=== PATIENT | female | born 1995 | race Asian ===

== ENCOUNTER 2020-07-15 14:25 | Inpatient (IN) | payer OTHER ==
[~2020-07-15] VITALS: Ht 160 cm; Wt 68.0 kg
[2020-07-15 14:50] VITALS: BP 140/80
[2020-07-15] MEDS ORDERED: Morphine Sulfate 2mg/ml Inj(IV/IM USE ONLY) IVP ONE ×2 (15:00→17:30)
[2020-07-15] MEDS ORDERED: Ketorolac 30mg Inj IV ONE ×2 (15:00→16:45)
--- NOTE | 2020-07-15 15:19 | NUR ---
ED Nurse Note:pt. came from home with c/o lower back pain no recent injury and nausea, blood and urine sent to labs, given IV meds and fluids
[2020-07-15 15:34] LABS: HEMATOCRIT 40.8 % (37.0-47.0); MEAN CORPUSCULAR VOLUME 89 FL (80-99); PLATELET COUNT 282 K/UL (150-450); RED BLOOD COUNT 4.59 M/UL (4.20-5.40); RED CELL DISTRIBUTION WIDTH 12.4 % (11.6-14.8); WHITE BLOOD COUNT 10.6 K/UL (4.8-10.8)
[2020-07-15 15:35] LABS: APPEARANCE,URINE CLOUDY; BILIRUBIN, URINE NEGATIVE (NEGATIVE); COLOR,URINE PALE YELLOW; GLUCOSE, URINE (UA) NEGATIVE (NEGATIVE); KETONES,URINE 3+ (NEGATIVE); LEUKOCYTE ESTERASE ,URINE NEGATIVE (NEGATIVE); NITRITE,URINE NEGATIVE (NEGATIVE); PH,URINE 8 (4.5-8.0); PROTEIN,URINE NEGATIVE (NEGATIVE); UROBILINOGEN,URINE NORMAL MG/DL (0.0-1.0)
[2020-07-15 15:46] LABS: ANION GAP 9 mmol/L (5-15); BLOOD UREA NITROGEN 10 mg/dL (7-18); CALCIUM 9.1 MG/DL (8.5-10.1); CARBON DIOXIDE 27 MMOL/L (21-32); CHLORIDE 103 MMOL/L (98-107); CREATININE 0.7 MG/DL (0.55-1.30); POTASSIUM 3.6 MMOL/L (3.5-5.1); SODIUM 139 MMOL/L (136-145)
[2020-07-15 15:51] LABS: ALANINE AMINOTRANSFERASE 28 U/L (12-78); ALBUMIN 4.4 G/DL (3.4-5.0); ALBUMIN/GLOBULIN RATIO 1.1 (1.0-2.7); ALKALINE PHOSPHATASE 46 U/L (46-116); ASPARTATE AMINO TRANSFERASE 18 U/L (15-37); BILIRUBIN,TOTAL 0.4 MG/DL (0.2-1.0); CREATINE KINASE 64 U/L (26-308)
--- NOTE | 2020-07-15 16:33 | Diagnostic Imaging Report ---
EXAM: CT Abdomen and Pelvis Without Intravenous Contrast CLINICAL HISTORY: PAIN TECHNIQUE: Axial computed tomography images of the abdomen and pelvis without intravenous contrast. CTDI is 5.2 mGy and DLP is 301.7 mGy-cm. One or more of the following dose reduction techniques were used: automated exposure control, adjustment of the mA and/or kV according to patient size, use of iterative reconstruction technique. COMPARISON: None FINDINGS: Lung bases: Mild atelectasis in the left lower lung. ABDOMEN: Liver: Unremarkable. Gallbladder and bile ducts: Unremarkable. No calcified stones. No ductal dilation. Pancreas: Unremarkable. No ductal dilation. Spleen: Unremarkable. No splenomegaly. Adrenals: Unremarkable. No mass. Kidneys and ureters: No hydronephrosis or stone. Stomach and bowel: Stomach is distended with ingested material and fluid. This may be related to a recent meal. No mucosal thickening. PELVIS: Appendix: Normal appendix. Bladder: Unremarkable. No stones. Reproductive: Multiple large heterogeneous fat-containing lesions in the pelvis, concerning for dermoids. ABDOMEN and PELVIS: Intraperitoneal space: Trace fluid in the pelvis may be physiologic. No free air. Bones/joints: No acute fracture. No dislocation. Soft tissues: Unremarkable. Vasculature: Phleboliths in the pelvis. No abdominal aortic aneurysm. Lymph nodes: Unremarkable. No enlarged lymph nodes. IMPRESSION: Multiple large heterogeneous fat-containing lesions in the pelvis, concerning for dermoids.
--- NOTE | 2020-07-15 16:41 | Emergency Room Report ---
History of Present Illness General Chief Complaint: Back Pain-No Injury Source: Patient (Karmen Turpin) Present Illness HPI 24-year-old female with a history of ADHD currently taking Vyvanse here complaining of sudden onset of right flank pain rating a 10 out of 10. Reports that happened in the middle of her sleep last night. Denies any urinary symptoms but reports that she is currently on her period. Also complains of few bouts of nonbloody emesis and feeling feverish. Denies diarrhea, constipation, chest pain shortness of breath. Continues to something strong for pain. Denies . Denies fall and injury. Reports that all injuries were back. (Karmen Turpin) Allergies: Coded Allergies: No Known Allergies (Unverified , 07/15/20) COVID-19 Screening Contact w/high risk pt: No Experienced COVID-19 symptoms?: No COVID-19 Testing performed DIRECTOR OF PHARMACY: No (Karmen Turpin) Patient History Past Medical History: see triage record Past Surgical History: none Pertinent Family History: none Last Menstrual Period: now Now: No Immunizations: UTD Reviewed Nursing Documentation: PMH: Agreed; PSxH: Agreed (Karmen Turpin) Nursing Documentation-PMH Past Medical History: No History, Except For (Karmen Turpin) Review of Systems All Other Systems: negative except mentioned in HPI (Karmen Turpin) Physical Exam Vital Signs Date Time Temp Pulse Resp B/P (MAP) Pulse Ox O2 Delivery O2 Flow Rate FiO2 07/15/20 14:28 97.9 80 16 140/80 (100) 98 Room Air Sp02 EP Interpretation: reviewed, normal General Appearance: no apparent distress, alert, GCS 15, non-toxic Head: normocephalic, atraumatic Eyes: bilateral eye normal inspection, bilateral eye PERRL ENT: hearing grossly normal, normal pharynx, no angioedema, normal voice Neck: full range of motion, supple/symm/no masses Respiratory: chest non-tender, lungs clear, normal breath sounds, no rhonchi, no respiratory distress, no retraction, no accessory muscle use, speaking full sentences Cardiovascular #1: regular rate, rhythm, no edema, no murmur Gastrointestinal: non tender, soft, no mass, no peritonitis, no bruit Genitourinary: CVA tenderness (R) Musculoskeletal: back normal, no calf tenderness, pelvis stable Neurologic: alert, motor strength/tone normal, oriented x3, sensory intact, responsive, speech normal Psychiatric: judgement/insight normal, memory normal, mood/affect normal, no suicidal/homicidal ideation Skin: no rash Lymphatic: no adenopathy (Karmen Turpin) Sp02 EP Interpretation: reviewed, normal General Appearance: alert, GCS 15, moderate distress Head: atraumatic ENT: normal ENT inspection, hearing grossly normal, normal voice Neck: normal inspection, full range of motion, supple, no bony tend Respiratory: normal inspection, lungs clear, normal breath sounds, no respiratory distress, no retraction, no wheezing Cardiovascular #1: regular rate, rhythm, no edema Musculoskeletal: normal inspection, back normal, normal range of motion Neurologic: alert, motor strength/tone normal, fountain brush assembler III-XII nml as tested, oriented, oriented x3, responsive, speech normal, normal inspection Psychiatric: normal inspection, judgement/insight normal, mood/affect normal Skin: no rash (Baljit Kwong MD) Medical Decision Making PA Attestation All my diagnosis and treatment plans were reviewed ad discussed with my supervising physician Dr. Kwong (Karmen Turpin) Diagnostic Impression: Primary Impression: Dermoid Additional Impression: Intractable abdominal pain ER Course 24-year-old female with a history of ADHD currently taking Vyvanse here complaining of sudden onset of right flank pain rating a 10 out of 10. Reports that happened in the middle of her sleep last night. Denies any urinary symptoms but reports that she is currently on her period. Also complains of few bouts of nonbloody emesis and feeling feverish. Denies diarrhea, constipation, chest pain shortness of breath. Continues to something strong for pain. Denies . Denies fall and injury. Reports that all injuries were back. Ddx considered but are not limited to: UTI, renal stone, ovarian torsion, pyelonephritis, urinary incontinence, prolapsed bladder Vital signs: are WNL, pt. is afebrile H&PE are most consistent with: Dermoid, intractable abdominal pain ORDERS: UA, urine cx, CT abdomen pelvis without contrast, CBC, CMP, UA, PT and PTT, lipase, tox screen, pelvic ultrasound, Percocet, Zofran ED INTERVENTIONS: NS bolus, morphine, Toradol, Zofran Upon discharge of patient, patient significant other was at bedside insisting on patient being admitted order given 30-day supply of Percocet afternoon Tylenol and have not yet stop patient BALANCE WHEEL MOTION INSPECTOR. I provided him with 2 BALANCE WHEEL MOTION INSPECTOR did contact information however they said that they are not sure whether insurance will be accepted. Patient's significant other was checking on his phone the whole time was speaking to the patient and it appeared as he was taking notes or recording my voice. Patient also insistent on getting an BALANCE WHEEL MOTION INSPECTOR consult coming in seeing the patient today. Patient boyfriend was talking for her the whole time. Patient boyfriend insisted after 6 mg of morphine patient still in moderate pain reports more pain medication does not know how to take care of her at home and believes that Percocet is not enough. I educated him that we cannot write for more than limited number of Percocet is a controlled substance patient is to follow primary doctor and I am more than happy to give the family clinics for patient to follow-up with as well as BALANCE WHEEL MOTION INSPECTOR however patient boyfriend requested for patient to stay in the hospital. I endorsed this case to my supervising physician Dr. Kwong. ([facility]) ER Course Patient presents with low back pain. She reports is primarily on the right side. CT imaging ordered by physician tiler's assistant showed large dermoid cyst. Pelvic ultrasound was ordered. Patient had persistent pain despite medications. Patient initially stated that she did not want transvaginal pelvic ultrasound performed. Patient was discussed with Dr. Chu Gomez for DIRECTOR OF SPECIAL EVENTS consult. Dr. Rebolledo was contacted for inpatient management. Patient was advised to maintain n.p.o. status. Patient was subsequently more agreeable to a transvaginal ultrasound. Labs Test 07/15/20 15:00 White Blood Count 10.6 K/UL (4.8-10.8) Red Blood Count 4.59 M/UL (4.20-5.40) Hemoglobin 13.0 G/DL (12.0-16.0) Hematocrit 40.8 % (37.0-47.0) Mean Corpuscular Volume 89 FL (80-99) Mean Corpuscular Hemoglobin 28.4 PG (27.0-31.0) Mean Corpuscular Hemoglobin Concent 31.9 G/DL (32.0-36.0) Red Cell Distribution Width 12.4 % (11.6-14.8) Platelet Count 282 K/UL (150-450) Mean Platelet Volume 7.8 FL (6.5-10.1) Neutrophils (%) (Auto) % (45.0-75.0) Lymphocytes (%) (Auto) % (20.0-45.0) Monocytes (%) (Auto) % (1.0-10.0) Eosinophils (%) (Auto) % (0.0-3.0) Basophils (%) (Auto) % (0.0-2.0) Differential Total Cells Counted 100 Neutrophils % (Manual) 94 % (45-75) Lymphocytes % (Manual) 5 % (20-45) Monocytes % (Manual) 1 % (1-10) Eosinophils % (Manual) 0 % (0-3) Basophils % (Manual) 0 % (0-2) Band Neutrophils 0 % (0-8) Platelet Estimate Adequate Platelet Morphology Normal Red Blood Cell Morphology Normal Prothrombin Time 10.7 SEC (9.30-11.50) Prothromb Time International Ratio 1.0 (0.9-1.1) Activated Partial Thromboplast Time 27 SEC (23-33) Urine Color Pale yellow Urine Appearance Cloudy Urine pH 8 (4.5-8.0) Urine Specific Crane 1.010 (1.005-1.035) Urine Protein Negative (NEGATIVE) Urine Glucose (UA) Negative (NEGATIVE) Urine Ketones 3+ (NEGATIVE) Urine Blood 4+ (NEGATIVE) Urine Nitrite Negative (NEGATIVE) Urine Bilirubin Negative (NEGATIVE) Urine Urobilinogen Normal MG/DL (0.0-1.0) Urine Leukocyte Esterase Negative (NEGATIVE) Urine RBC 10-15 /HPF (0 - 2) Urine WBC 0-2 /HPF (0 - 2) Urine Squamous Epithelial Cells Few /LPF (NONE/OCC) Urine Amorphous Sediment Many /LPF (NONE) Urine Bacteria Few /HPF (NONE) Urine HCG, Qualitative Negative (NEGATIVE) Sodium Level 139 MMOL/L (136-145) Potassium Level 3.6 MMOL/L (3.5-5.1) Chloride Level 103 MMOL/L (98-107) Carbon Dioxide Level 27 MMOL/L (21-32) Anion Gap 9 mmol/L (5-15) Blood Urea Nitrogen 10 mg/dL (7-18) Creatinine 0.7 MG/DL (0.55-1.30) Estimat Glomerular Filtration Rate > 60 mL/min (>60) Glucose Level 133 MG/DL (74-106) Calcium Level 9.1 MG/DL (8.5-10.1) Total Bilirubin 0.4 MG/DL (0.2-1.0) Aspartate Amino Transf (AST/SGOT) 18 U/L (15-37) Alanine Aminotransferase (ALT/SGPT) 28 U/L (12-78) Alkaline Phosphatase 46 U/L (46-116) Total Creatine Kinase 64 U/L (26-308) Total Protein 8.4 G/DL (6.4-8.2) Albumin 4.4 G/DL (3.4-5.0) Globulin 4.0 g/dL Albumin/Globulin Ratio 1.1 (1.0-2.7) Lipase 112 U/L (73-393) Human Chorionic Gonadotropin, Quant 1 mIU/mL (1-6) Urine Opiates Screen Negative (NEGATIVE) Urine Barbiturates Screen Negative (NEGATIVE) Phencyclidine (PCP) Screen Negative (NEGATIVE) Urine Amphetamines Screen Negative (NEGATIVE) Urine Benzodiazepines Screen Negative (NEGATIVE) Urine Cocaine Screen Negative (NEGATIVE) Urine Marijuana (THC) Screen Positive (NEGATIVE) Serum Alcohol < 30 mg/dL (Baljit Kwong MD) CT/MRI/US Diagnostic Results CT/MRI/US Diagnostic Results #1: Imaging Test Ordered: CT abdomen pelvis without contrast Impression FINDINGS: Lung bases: Mild atelectasis in the left lower lung. ABDOMEN: Liver: Unremarkable. Gallbladder and bile ducts: Unremarkable. No calcified stones. No ductal dilation. Pancreas: Unremarkable. No ductal dilation. Spleen: Unremarkable. No splenomegaly. Adrenals: Unremarkable. No mass. Kidneys and ureters: No hydronephrosis or stone. Stomach and bowel: Stomach is distended with ingested material and fluid. This may be related to a recent meal. No mucosal thickening. PELVIS: Appendix: Normal appendix. Bladder: Unremarkable. No stones. Reproductive: Multiple large heterogeneous fat-containing lesions in the pelvis, concerning for dermoids. ABDOMEN and PELVIS: Intraperitoneal space: Trace fluid in the pelvis may be physiologic. No free air. Bones/joints: No acute fracture. No dislocation. Soft tissues: Unremarkable. Vasculature: Phleboliths in the pelvis. No abdominal aortic aneurysm. Lymph nodes: Unremarkable. No enlarged lymph nodes. IMPRESSION: Multiple large heterogeneous fat-containing lesions in the pelvis, concerning for dermoids. CT/MRI/US Diagnostic Results #2: Imaging Test Ordered: pelvic US Impression COMPARISON: CT abdomen and pelvis 07/15/2020. FINDINGS: Uterus/cervix: Given findings on comparison CT, large pelvic mass may be within the uterus but is probably more likely anterior and adjacent to the uterus. Uterine size difficult to evaluate, estimated at 12.5 x 9.4 x 10 cm, although this includes the large central pelvic multicystic mass. Normal endometrial stripe thickness. Right ovary: Ovaries not definitively identified according to pigment grinder notes. Left ovary: Large central pelvic 8.3 x 7 x 6.3 cm multicystic structure with complex contents including intracystic nodularity. Left adnexal 4.8 x 4.6 x 6.3 cm complex cystic structure with echogenic regions present. Additional left adnexal 10.1 x 4.2 cm complex cystic structure with echogenic regions present. Free fluid: No free fluid. Bladder: Unremarkable as visualized. Wall is normal thickness for degree of distention. Other findings: Patient has a negative urine test. IMPRESSION: 1. Patient has a negative urine test. 2. Ovaries not definitively identified according to pigment grinder notes. 3. Given findings on CT and ultrasound, patient most likely has multiple bilateral pelvic dermoids which are probably adjacent to the uterus. 4. Recommend gynecology consultation and MRI pelvis without and with IV contrast to further characterize these findings. 5. Uterine size difficult to evaluate, estimated at 12.5 x 9.4 x 10 cm, although this includes the large central pelvic multicystic mass. (Karmen Turpin) Last Vital Signs Date Time Temp Pulse Resp B/P (MAP) Pulse Ox O2 Delivery O2 Flow Rate FiO2 07/15/20 15:30 97.9 07/15/20 14:50 80 16 140/80 98 Room Air (Karmen Turpin) Status: unchanged (Baljit Kwong MD) Disposition: ADMITTED INPATIENT Condition: Stable Scripts Ondansetron (Zofran) 4 Mg Tablet 4 MG ORAL Q6H PRN for Nausea & Vomiting, #21 TAB Prov: Karmen Turpin 07/15/20 Oxycodone/Acetaminophen 5-325* (PERCOCET 5-325 MG TABLET*) 1 Each Tablet 1 TAB ORAL Q8H PRN for For Pain for 4 Days, #12 TAB 0 Refills Prov: Karmen Turpin 07/15/20 Referrals: NOT CHOSEN IPA/,REFERRING (PCP) Patient Instructions: Pelvic Mass Additional Instructions: Patient to follow-up with BALANCE WHEEL MOTION INSPECTOR, gave contact information to Dr. Genao, advised to follow-up with, if worsening symptom return to the emergency room Karmen Turpin Jul 15, 2020 16:41 Baljit Kwong MD Jul 15, 2020 23:19
[2020-07-15] MEDS ORDERED: Morphine Sulfate 4mg/ml Inj (IV USE ONLY) IVP ONE (19:00)
--- NOTE | 2020-07-15 19:01 | NUR ---
ED Nurse Note:U/S was done and pt. received 3 doses of Morphine for pain control
--- NOTE | 2020-07-15 19:03 | NUR ---
HAND-OFF: Report given to Vini.
--- NOTE | 2020-07-15 19:30 | NUR ---
ED Nurse Note: Recieved report from lizbeth finley to resume care, pt in bed conversing with spouse at bedside, pt here with c/o abd pain, previously medicated but states pain meds work only for short time, now rated at 6/10, pt ahs patent saline lock, SIDEHAND provider at bedside to discharge pt, pt and spouse state they are not ready to go yet, informed provider and , waiting for further instructions for disposition.
[2020-07-15 19:45] VITALS: BP 131/74
[2020-07-15] MEDS ORDERED: PERCOCET 5-3251 EACH ORAL (20:05)
[2020-07-15] MEDS ORDERED: ZOFRAN4 M1 ORAL (20:05)
--- NOTE | 2020-07-15 20:40 | NUR ---
ED Nurse Note: at bedside discussing plan of care with pt and spouse.
--- NOTE | 2020-07-15 21:00 | NUR ---
ED Nurse Note: Pt now to be admitted to hospital, pt remains in bed awake and alert, pt constantly complains that she has pain, pt cries out loudly, screaming at times "help me", informed pt that it takes just a few minutes to get meds, pt and are very anxious, demanding to go to surgery "now!", pt takes off cardiac monitoring and b/p cuff stating it hurts, IV site patent, pt being medicated as ordered for pain, sat and explained to pt about pain meds and how they work and what to expect, pt remains very anxxious, pt is on phone with family member whom is MD and demanding we follow hre orders, MD at bedside to attempt to explain to both parties about admission process and doctors, will continue to closely monitor pt and follow orders as recieved.
[2020-07-15 22:00] VITALS: BP 129/77
[2020-07-15] MEDS ORDERED: fentaNYL 100 mcg/2 mL IV ONE (22:15)
--- NOTE | 2020-07-15 23:00 | NUR ---
ED Nurse Note: Pt is currently having bedside ultrasound, pt is crying, U/S tech came to ask for more pain meds, pt refuses to have vaginal ultrasound until she recieves fentanyl, meds given and pt continues to complain, pt in room and will not leave stating he has to be here, Covid precautions explained and visiting, informed pt he can stay, no longer here and new MD wants pt in lobby, will intervene to surfice all parties and keep pt comfortable for exam and care, pt allowed, also explained that nn further narcotics can be given if she will not allow monitoring, pt continues to state pain at 7-8/10 in vaginal area, no changes noted.
[2020-07-15] MEDS ORDERED: Hydromorphone 0.5mg/0.5ml inj IVP PRN (23:15)
[2020-07-15] MEDS: D5NS 1,000 ML IV SCH (23:15)
--- NOTE | 2020-07-15 23:46 | Diagnostic Imaging Report ---
EXAM: US Pelvis Transabdominal and Transvaginal, Complete CLINICAL HISTORY: PAIN TECHNIQUE: Real-time complete transabdominal and transvaginal pelvic ultrasound with image documentation. Transvaginal imaging was used for better evaluation of the endometrium and adnexa. COMPARISON: Same-day CT abdomen and pelvis and pelvic ultrasound. FINDINGS: Uterus/cervix: Unremarkable uterus. Uterus 8 x 5.5 x 4.2 cm Endometrium 0.6 cm No myometrial mass. Right ovary: Heterogeneous right adnexal, left adnexal, and central pelvic masses similar in appearance and based on CT and recent ultrasound imaging represent multiple large pelvic likely ovarian dermoids. Ovaries not discretely identified, torsion cannot be definitively excluded. Left ovary: See above. Free fluid: No free fluid. Bladder: Unremarkable as visualized. Wall is normal thickness for degree of distention. IMPRESSION: 1. Unremarkable uterus. 2. Heterogeneous right adnexal, left adnexal, and central pelvic masses similar in appearance and based on CT and recent ultrasound imaging represent multiple large pelvic likely ovarian dermoids. 3. Ovaries not discretely identified due to large pelvic masses, torsion cannot be definitively excluded.
[2020-07-15] MEDS ORDERED: HYDROmorphone 1mg/ml Carpuject ONE (23:53)
[2020-07-16] VITALS (16 sets, daily range): BP systolic 101–149; BP diastolic 64–89
--- NOTE | 2020-07-16 01:15 | NUR ---
ED Nurse Note: Pt has room for hospital admission, pt continues to ask for more pain meds, pt rates pain at 8/10, medicated as ordered, also given antiemetic for mild nausea, pt denies chest pain, no sob or labored breathing noted, 02 sat=98% on room air, saline lock intact and patent, pt belonging list completed and signed, report called to floor nurse JACQUE Coreas on unit, pt being taken up via gurney with RN and ER-Tech.
[2020-07-16] MEDS: HYDROmorphone 1mg/ml Carpuject IVP PRN ×3 (01:19→09:48)
--- NOTE | 2020-07-16 01:30 | NUR ---
NURSE NOTES: received report from JACQUE Hill from the ER. awaiting pts arrival on the unit.
--- NOTE | 2020-07-16 02:12 | NUR ---
NURSE NOTES: pt arrived on the unit via gurney. pt alert and oriented x 4, no acute distress noted and no co pain at the moment. pt oriented to the room, belongings reconciled. bed in lowest position, side rails up. pt vital signs are stable. call light placed within reach. will call Doctor for admission orders.
--- NOTE | 2020-07-16 04:00 | NUR ---
NURSE NOTES: pt vital signs are stable at this time. pt was able to ambulate to the bathroom and void with minimal assistance, steady gait. she is complaining of pain 3-4/10 at this time. will give dilaudid when due. pt is now lying in bed trying to sleep.
--- NOTE | 2020-07-16 05:00 | NUR ---
NURSE NOTES: pt agitated due to pain. pt asking if her surgery by Dr. Gomez will be today at 7am. pt told me she has yet to be seen by Dr. Gomez, no informed consent obtained at this moment. called nurse drying supervisor to inquire about surgery schedule, pt not on that list. informed pt that in the ED provider note, Dr. Gomez will most likely see her this morning but I cannot guarantee or pinpoint as to what time that will be. Will endorse pts concerns to day shift nurse. Will focus on pain management.
--- NOTE | 2020-07-16 05:30 | NUR ---
NURSE NOTES: pt agitation decreased after being given the 1mg Dilaudid, she is no longer moaning and is now asleep. no more co pain currently. no acute distress noted at this time.
--- NOTE | 2020-07-16 06:55 | NUR ---
NURSE HAND-OFF: Important Events on Shift:pain management Patient Status: stable Diet: NPO Pending Orders: remaining admission orders Pending Results/Labs:NA Pending MD notification: Dr. Gomez regarding surgery Latest Vital Signs: Temperature 97.9 , Pulse 72 , B/P 145 /85 , Respiratory Rate 17 , O2 SAT 96 , Room Air, O2 Flow Rate . Vital Sign Comment: stable Latest Caballero Fall Score: 30 Fall Risk: Medium Risk Safety Measures: Call light Within Reach, Bed Alarm , Side Rails Side Rails x2, Bed position Low and Locked. Fall Precautions: Patient Fall Education Report given to JACQUE Vazquez.
--- NOTE | 2020-07-16 07:45 | NUR ---
NURSE NOTES: Received report from JACQUE Coreas. Pt alert and oriented x 4, breathing even and unlabored in room air, no acute distress noted and no c/o pain at this time. bed in lowest position, call light placed within reach. will continue to monitor.
--- NOTE | 2020-07-16 08:19 | History & Physical ---
History and Physical History & Physicial seen and examined. Full Dictation completed on 815 hours. Batsheva Rebolledo MD Jul 16, 2020 08:19
--- NOTE | 2020-07-16 08:21 | General Progress Note ---
Subjective Allergies: Coded Allergies: No Known Allergies (Unverified , 07/15/20) Objective Last 24 Hour Vital Signs Date Time Temp Pulse Resp B/P (MAP) Pulse Ox O2 Delivery O2 Flow Rate FiO2 07/16/20 03:45 97.9 72 17 145/85 (105) 96 07/16/20 02:10 Room Air 07/16/20 01:50 97.9 69 16 149/83 (105) 96 07/16/20 01:30 97.9 07/16/20 01:30 97.9 76 16 129/77 97 Room Air 07/16/20 00:00 98.7 71 16 119/73 99 Room Air 07/15/20 23:15 97.9 07/15/20 22:00 97.9 76 16 129/77 97 Room Air 07/15/20 19:45 98.4 83 20 131/74 98 Room Air 07/15/20 19:31 97.9 07/15/20 18:02 97.9 07/15/20 17:13 97.9 07/15/20 15:30 97.9 07/15/20 15:30 97.9 07/15/20 14:50 97.9 80 16 140/80 98 Room Air 07/15/20 14:28 97.9 80 16 140/80 (100) 98 Room Air Laboratory Tests 07/15/20 15:00: White Blood Count 10.6, Red Blood Count 4.59, Hemoglobin 13.0, Hematocrit 40.8, Mean Corpuscular Volume 89, Mean Corpuscular Hemoglobin 28.4, Mean Corpuscular Hemoglobin Concent 31.9L, Red Cell Distribution Width 12.4, Platelet Count 282, Mean Platelet Volume 7.8, Neutrophils (%) (Auto) , Lymphocytes (%) (Auto) , Monocytes (%) (Auto) , Eosinophils (%) (Auto) , Basophils (%) (Auto) , Differential Total Cells Counted 100, Neutrophils % (Manual) 94H, Lymphocytes % (Manual) 5L, Monocytes % (Manual) 1, Eosinophils % (Manual) 0, Basophils % (Manual) 0, Band Neutrophils 0, Platelet Estimate Adequate, Platelet Morphology Normal, Red Blood Cell Morphology Normal, Prothrombin Time 10.7, Prothromb Time International Ratio 1.0, Activated Partial Thromboplast Time 27, Urine Color Pale yellow, Urine Appearance Cloudy, Urine pH 8, Urine Specific [place] 1.010, Urine Protein Negative, Urine Glucose (UA) Negative, Urine Ketones 3+H, Urine Blood 4+H, Urine Nitrite Negative, Urine Bilirubin Negative, Urine Urobilinogen Normal, Urine Leukocyte Esterase Negative, Urine RBC 10-15H, Urine WBC 0-2, Urine Squamous Epithelial Cells Few, Urine Amorphous Sediment ManyH, Urine Bacteria Few, Urine HCG, Qualitative Negative, Sodium Level 139, Potassium Level 3.6, Chloride Level 103, Carbon Dioxide Level 27, Anion Gap 9, Blood Urea Nitrogen 10, Creatinine 0.7, Estimat Glomerular Filtration Rate > 60, Glucose Level 133H, Calcium Level 9.1, Total Bilirubin 0.4, Aspartate Amino Transf (AST/SGOT) 18, Alanine Aminotransferase (ALT/SGPT) 28, Alkaline Phosphatase 46, Total Creatine Kinase 64, Total Protein 8.4H, Albumin 4.4, Globulin 4.0, Albumin/Globulin Ratio 1.1, Lipase 112, Human Chorionic Gonadotropin, Quant 1, Urine Opiates Screen Negative, Urine Barbiturates Screen Negative, Phencyclidine (PCP) Screen Negative, Urine Amphetamines Screen Negative, Urine Benzodiazepines Screen Negative, Urine Cocaine Screen Negative, Urine Marijuana (THC) Screen PositiveH, Serum Alcohol < 30 Height (Feet): 5 Height (Inches): 4.00 Weight (Pounds): 150 Assessment/Plan Assessment/Plan: Full dictation in progress: A/P: 1- Adnexal mass, Torsion of ovary including in ddx Plan: Mushroom Packer, ID and Nephrology consulted Batsheva Rebolledo MD Jul 16, 2020 08:21
[2020-07-16] MEDS: Enoxaparin 40mg Inj SUBQ SCH ×2 (09:00→09:45)
[2020-07-16] MEDS: Docusate 100mg cap ORAL SCH ×2 (09:12→09:45)
[2020-07-16] MEDS: D5NS 1,000 ML IV SCH (09:15)
--- NOTE | 2020-07-16 10:30 | NUR ---
NURSE NOTES: Pt was seen by Dr. Gomez and explained about procedure, pt signed consent for surgery.
--- NOTE | 2020-07-16 11:06 | Pre-Procedure Note/Attestation ---
Pre-Procedure Note/Attestation Complete Prior to Procedure Planned Procedure: bilateral Procedure Narrative: Diagnostic laparoscopy, possible exploratory laparotomy, possible salpingo-oophorectomy, possible cystectomy (Side to be determined laparoscopically) Indications for Procedure Pre-Operative Diagnosis: Severe Right Lower Abdominal Pain, acute onset Attestation I attest that I discussed the nature of the procedure; its benefits; risks and complications; and alternatives (and the risks and benefits of such alt ernatives), prior to the procedure, with the patient (or the patient's legal community health representative). I attest that, if there was a reasonable possibility of needing a blood transfusion, the patient (or the patient's legal community health representative) was given the [place] Department of Health Services standardized written summary, pursuant to the Martín Suraj Blood Safety Act ([place] Health and Safety Code # 1645, as amended). I attest that I re-evaluated the patient just prior to the surgery and that there has been no change in the patient's H&P, except as documented below: Chu Gomez MD Jul 16, 2020 11:06
[2020-07-16] MEDS ORDERED: Midazolam 2mg/2ml Inj ONE (11:35)
[2020-07-16] MEDS ORDERED: fentaNYL 100 mcg/2 mL IV ONE (11:36)
[2020-07-16] MEDS ORDERED: TransDerm Scop 1.5mg/72HR Patch TDERMAL ONE (11:38)
[2020-07-16] MEDS ORDERED: Succinylcholine 20mg/ml 10ml vial ONE (11:38)
[2020-07-16] MEDS ORDERED: Rocuronium Bromide 50mg/5ml Inj IV ONE (11:38)
[2020-07-16] MEDS ORDERED: cefOXitin 1gm Inj ONE (11:38)
[2020-07-16] MEDS ORDERED: Ropivacaine 5mg/ml Vial 30ml INJ ONE (11:39)
[2020-07-16] MEDS ORDERED: ProvayBlue 5mg/ml 10ml amp INJ ONE (11:45)
--- NOTE | 2020-07-16 11:55 | NUR ---
NURSE NOTES: Swabbed through left nare for Covid 19 test
[2020-07-16] MEDS ORDERED: NS Irrig 1000ml ONE (12:00)
[2020-07-16] MEDS ORDERED: Neostigmine 1mg/ml 10ml Inj ONE (12:00)
[2020-07-16] MEDS ORDERED: Glycopyrrolate 0.2mg/ml 1ml Vial ONE (12:00)
[2020-07-16] MEDS ORDERED: LR 1000ml ONE ×2 (12:00)
[2020-07-16] MEDS ORDERED: Sterile Water Irrig 1000ml IRRIG ONE (12:00)
[2020-07-16] MEDS ORDERED: Ketorolac 30mg Inj ONE (12:00)
--- NOTE | 2020-07-16 12:23 | NUR ---
NURSE NOTES: Pt was sent to surgery via hospital bed with stable condition.
[2020-07-16] MEDS ORDERED: NS Irrig 1000ml IRRIG ONE (13:10)
[2020-07-16] MEDS ORDERED: Duramorph PF 5mg/10ml amp ONE (13:19)
--- NOTE | 2020-07-16 13:23 | Anethesia Preoperative Eval ---
Anesthesia Pre-op PMH/ROS General Date of Evaluation: Jul 16, 2020 Time of Evaluation: 11:50 Anesthesiologist: Lucina ASA Score: ASA 2 Mallampati Score Class I : Soft palate, uvula, fauces, pillars visible Class II: Soft palate, uvula, fauces visible Class III: Soft palate, base of uvula visible Class IV: Only hard plate visible Mallampati Classification: Class II Surgeon: Patricia Diagnosis: Ovarian cysts Surgical Procedure: Laparoscopy Anesthesia History: none Family History: no anesthesia problems Allergies: Coded Allergies: No Known Allergies (Unverified , 07/15/20) Medications: see eMAR Patient NPO?: Yes Past Medical History Cardiovascular: Denies: HTN, CAD, [place], valve dz, arrhythmia, other Pulmonary: Denies: asthma, COPD, ALEK, other Gastrointestinal/Genitourinary: Reports: GERD - mild Neurologic/Psychiatric: Reports: depression/anxiety, other - recurrent abdominal pain; Denies: dementia, CVA, TIA Endocrine: Denies: DM, hypothyroidism, steroids, other HEENT: Denies: cataract (L), cataract (R), glaucoma, BENTON (L), BENTON (R), other Hematology/Immune: Reports: anemia - mild; Denies: DVT, bleeding disorder, other Musculoskeletal/Integumentary: Denies: OA, RA, DJD, DDD, edema, other PMH Narrative: as above admitted for acute recurrent abdominal pain PSxH Narrative: T&A, dental Sx Anesthesia Pre-op Phys. Exam Physician Exam Last Vital Signs Date Time Temp Pulse Resp B/P (MAP) Pulse Ox O2 Delivery O2 Flow Rate FiO2 07/16/20 12:00 98.2 70 17 129/87 (101) 97 07/16/20 09:00 Room Air Constitutional: NAD Neurologic: CN 2-12 intact Cardiovascular: RRR, no M/R/G Gastrointestinal: other - some tenderness on palpation Airway Exam Mallampati Score: Class II Neck: flexible ROM: full Teeth: intact Dentures: no upper, no lower Anesthesia Pre-op A/P Labs Hematology Test 07/15/20 15:00 White Blood Count 10.6 K/UL (4.8-10.8) Red Blood Count 4.59 M/UL (4.20-5.40) Hemoglobin 13.0 G/DL (12.0-16.0) Hematocrit 40.8 % (37.0-47.0) Mean Corpuscular Volume 89 FL (80-99) Mean Corpuscular Hemoglobin 28.4 PG (27.0-31.0) Mean Corpuscular Hemoglobin Concent 31.9 G/DL (32.0-36.0) L Red Cell Distribution Width 12.4 % (11.6-14.8) Platelet Count 282 K/UL (150-450) Mean Platelet Volume 7.8 FL (6.5-10.1) Neutrophils (%) (Auto) % (45.0-75.0) Lymphocytes (%) (Auto) % (20.0-45.0) Monocytes (%) (Auto) % (1.0-10.0) Eosinophils (%) (Auto) % (0.0-3.0) Basophils (%) (Auto) % (0.0-2.0) Differential Total Cells Counted 100 Neutrophils % (Manual) 94 % (45-75) H Lymphocytes % (Manual) 5 % (20-45) L Monocytes % (Manual) 1 % (1-10) Eosinophils % (Manual) 0 % (0-3) Basophils % (Manual) 0 % (0-2) Band Neutrophils 0 % (0-8) Platelet Estimate Adequate Platelet Morphology Normal Red Blood Cell Morphology Normal Coagulation Test 07/15/20 15:00 Prothrombin Time 10.7 SEC (9.30-11.50) Prothromb Time International Ratio 1.0 (0.9-1.1) Activated Partial Thromboplast Time 27 SEC (23-33) Chemistry Test 07/15/20 15:00 Sodium Level 139 MMOL/L (136-145) Potassium Level 3.6 MMOL/L (3.5-5.1) Chloride Level 103 MMOL/L (98-107) Carbon Dioxide Level 27 MMOL/L (21-32) Anion Gap 9 mmol/L (5-15) Blood Urea Nitrogen 10 mg/dL (7-18) Creatinine 0.7 MG/DL (0.55-1.30) Estimat Glomerular Filtration Rate > 60 mL/min (>60) Glucose Level 133 MG/DL (74-106) H Calcium Level 9.1 MG/DL (8.5-10.1) Total Bilirubin 0.4 MG/DL (0.2-1.0) Aspartate Amino Transf (AST/SGOT) 18 U/L (15-37) Alanine Aminotransferase (ALT/SGPT) 28 U/L (12-78) Alkaline Phosphatase 46 U/L (46-116) Total Creatine Kinase 64 U/L (26-308) Total Protein 8.4 G/DL (6.4-8.2) H Albumin 4.4 G/DL (3.4-5.0) Globulin 4.0 g/dL Albumin/Globulin Ratio 1.1 (1.0-2.7) Lipase 112 U/L (73-393) Human Chorionic Gonadotropin, Quant 1 mIU/mL (1-6) Urine Test Test 07/15/20 15:00 Urine HCG, Qualitative Negative (NEGATIVE) Risk Assessment & Plan Assessment: ASA 2 Plan: GA with ETT PONV prevention Status Change Before Surgery: No Pre-Antibiotics Drug: Cefoxitin 1gr. Given Within 1 Hr of Incision: Yes Time Given: 12:45 Mickey Verdugo MD Jul 16, 2020 13:22
[2020-07-16] MEDS ORDERED: Morphine Sulfate 10mg/ml Inj ONE (13:24)
[2020-07-16] MEDS ORDERED: TransDerm Scop 1.5mg/72HR Patch TDERMAL SCH (13:30)
[2020-07-16] MEDS ORDERED: LR 1000ml 1,000 ML IVLG SCH (13:45)
[2020-07-16] MEDS ORDERED: DiphenhydrAMINE 50mg/ml Inj IVP PRN (13:45)
[2020-07-16] MEDS ORDERED: Meperidine 25mg/1ml Inj (FOR RIGORS ONLY) IV PRN (13:45)
[2020-07-16] MEDS ORDERED: Midazolam 2mg/2ml Inj IVP PRN (13:45)
[2020-07-16] MEDS ORDERED: Ketorolac 30mg Inj IV PRN (13:45)
[2020-07-16] MEDS ORDERED: Metoclopramide 10mg/2ml Inj IVP PRN (13:45)
[2020-07-16] MEDS ORDERED: Acetaminophen (Non formulary) 100 ML IV SCH (14:00)
--- NOTE | 2020-07-16 15:58 | Immediate Post-Op Evaluation ---
Immediate Post-Op Evalulation Immediate Post-Op Evalulation Procedure: Laparoscopic removal of R ovarian cyst Date of Evaluation: Jul 16, 2020 Time of Evaluation: 15:57 IV Fluids: 1200 Blood Products: none Estimated Blood Loss: 150 Urinary Output: 300 Blood Pressure Systolic: 122 Blood Pressure Diastolic: 56 Pulse Rate: 78 Respiratory Rate: 20 O2 Sat by Pulse Oximetry: 99 Temperature (Fahrenheit): 97.6 Pain Score (1-10): 1 Nausea: No Vomiting: No Complications none Patient Status: reacts, patent, extubated, none Hydration Status: adequate Mickey Verdugo MD Jul 16, 2020 15:58
--- NOTE | 2020-07-16 16:01 | Brief Operative Note ---
Immediate Post Operative Note Operative Note Pre-op Diagnosis: Severe Right Lower Abdominal Pain, acute onset Procedure: Video laparoscopy, Right Salpingo-oophorectomy, evacuation of extensive dermoid cyst contents Post-op Diagnosis: 15 cm right ovarian mass, Right dermoid cyst, Right ovarian torsion Surgeon: Chu Gomez MD Restaurant Bartender: -- Anesthesiologist: Devin Verdugo MD Anesthesia: general Specimen: yes - Right tube and ovary Complications: none Condition: stable Fluids: LR @125 cc / hr Estimated Blood Loss: minimal Drains: none Implant(s) used?: No Chu Gomez MD Jul 16, 2020 16:01
[2020-07-16] MEDS: Ketorolac 30mg Inj IM SCH ×2 (16:15→22:20)
[2020-07-16] MEDS ORDERED: HYDROmorphone 1mg/ml Carpuject SUBQ PRN (16:15)
[2020-07-16] MEDS ORDERED: HYDROcodone/Acetamin 5/325 tab ORAL PRN (16:15)
[2020-07-16] MEDS ORDERED: Tylenol #3 tab (300mg/30mg) ORAL PRN (16:15)
[2020-07-16] MEDS: D5 1/2NS 1,000 ML IV SCH (16:15)
--- NOTE | 2020-07-16 16:50 | NUR ---
NURSE NOTES: Pt came back from recovery after surgery via hospital bed. Received report from JACQUE Hensley. Pt awake but drowsy, alert and oriented, breathing even and unlabored, on NC 2L. Vital signs stable. Noted with surgical dressing x3, clean and dry. Provided ice chips. Call light within reach. will continue to monitor.
--- NOTE | 2020-07-16 19:30 | NUR ---
NURSE NOTES: received pt and report from JACQUE Vazquez. pt alert and oriented x 4, iv site clean dry and intact and running fluids as ordered, lap surgical site dressing clean dry and intact. no acute s/s of distress, mild pain at this time at lap sites. she has still not voided since removal of salinas. will monitor this throughout the shift.
--- NOTE | 2020-07-16 19:31 | NUR ---
NURSE HAND-OFF: Important Events on Shift:[Post-op, vitals stable, pain management, not voided yet after salinas out] Patient Status: [stable] Diet: [reg] Pending Orders: [] Pending Results/Labs:[] Pending MD notification:[] Latest Vital Signs: Temperature 98.7 , Pulse 85 , B/P 121 /80 , Respiratory Rate 18 , O2 SAT 99 , Nasal Cannula, O2 Flow Rate 3 . Vital Sign Comment: [stable] Latest Caballero Fall Score: 30 Fall Risk: Medium Risk Safety Measures: Call light Within Reach, Bed Alarm Zone 1, Side Rails Side Rails x2, Bed position Low and Locked. Fall Precautions: Patient Fall Education Report given to [JACQUE Coreas].
[2020-07-16] MEDS ORDERED: LR 1000ml 1,000 ML IVLG ONE (21:45)
--- NOTE | 2020-07-16 21:45 | NUR ---
NURSE NOTES: received call from Dr. Gomez. Dr. Gomez made aware of salinas d/c at 1530 and that the pt had not voided yet. LR bolus ordered. I encouraged the pt to drink more fluids, offered water, apple juice and cranberry juice. pt taking in fluids well with only mild nausea.
--- NOTE | 2020-07-16 22:47 | NUR ---
NURSE NOTES: pt voided 400cc urine. no complications, no difficulty. pt tolerating pain with scheduled Toradol. Pt walked around the unit 1 revolution with assist. pt tolerated ambulation well. no acute distress observed.
--- NOTE | 2020-07-16 23:37 | NUR ---
NURSE NOTES: vital signs are stable. no acute distress observed. pain is controlled, pt lying in bed with no co pain at the moment.
[2020-07-17] MEDS: D5 1/2NS 1,000 ML IV SCH (01:40)
--- NOTE | 2020-07-17 01:54 | NUR ---
NURSE NOTES: pt has now voided 3 times since removal of the salinas. pt able to ambulate to bathroom independently, gait steady. pt stating that she is still unsure whether she should go home today. Will follow up and endorse pts concern to day shift nurse.
[2020-07-17] MEDS: Ketorolac 30mg Inj IM SCH (03:56)
[2020-07-17 04:00] VITALS: BP 103/61
--- NOTE | 2020-07-17 04:00 | NUR ---
NURSE NOTES: pt vital signs are stable at this time. pain is at 5/10. will give pain medication. pt got up again to ambulate to the bathroom and voided. assist needed getting out of bed but gait is steady when ambulating. no acute distress noted. alert and oriented x4.
[2020-07-17] MEDS ORDERED: Ketorolac 30mg Inj IM PRN (07:15)
--- NOTE | 2020-07-17 07:30 | NUR ---
NURSE NOTES: Patient is in bed asleep. Stable. Breathing is even and unlabored on room air. No signs of distress noted at this time. All safety measures provided. Patient is in bed in locked and lowest position with call light within reach. Will continue to monitor.
--- NOTE | 2020-07-17 07:35 | NUR ---
NURSE HAND-OFF: Important Events on Shift: pain management, possible d/c Patient Status: stable Diet: regular Pending Orders: NA Pending Results/Labs:NA Pending MD notification:NA Latest Vital Signs: Temperature 99.4 , Pulse 85 , B/P 103 /61 , Respiratory Rate 17 , O2 SAT 97 , Nasal Cannula, O2 Flow Rate 3 . Vital Sign Comment: stable through the shift Latest Caballero Fall Score: 30 Fall Risk: Medium Risk Safety Measures: Call light Within Reach, Bed Alarm Zone 1, Side Rails Side Rails x2, Bed position Low and Locked. Fall Precautions: Patient Fall Education Report given to JACQUE Almanza.
[2020-07-17 08:00] VITALS: BP 110/66
--- NOTE | 2020-07-17 08:59 | NUR ---
NURSE NOTES: Surgeon at bedside.
[2020-07-17] MEDS ORDERED: Ketorolac 60mg Inj IM SCH (09:30)
--- NOTE | 2020-07-17 09:38 | NUR ---
CASE MANAGEMENT:REVIEW 24YR OLD FEMALE PRESENTED TO ER CC: SUDDEN ONSET OF RT FLANK PAIN SI: DERMOID CYST. INTRACTABLE ABDOMINAL PAIN 97.8 80 16 140/80 98% ON RA GLUCOSE+133 URINE(+) THC IS: 1L NS BOLUS IV TORADOL X2 IV MORPHINE X3 IV ZOFRAN X2 HCG QUANTITATIVE PELVIC US CT ABD/PELVIS : TO MED/SURG 3EAST DCP FROM HOME PLAN: SURGERY
--- NOTE | 2020-07-17 09:47 | NUR ---
CASE MANAGEMENT:REVIEW 07/17/20 SI: POD #1 S/P RT SALPINGO OOPHORECTOMY, EVACUATION OF EXTENSIVE DERMOID CYST 99.1 103 17 110/66 96% ON RA IS: IM TORADOL X1 IVF@100/HR PROTONIX PO QD LOVENOX SQ QD NORCO PO Q4HRS PRN : MED/SURG STATUS 3 EAST DCP: FROM HOME PLAN: DISCHARGE
--- NOTE | 2020-07-17 09:57 | NUR ---
NURSE NOTES: Surgeon discussed plan of care with patient, all questions and concerns addressed. Patient able to void. Patient is sitting up at edge of bed. Pain is 2/10 when not moving. Will continue plan of care.
--- NOTE | 2020-07-17 12:00 | NUR ---
NURSE NOTES: Patient able to ambulate independently, tolerating diet, pain is at a tolerable level for patient. Will initiate discharge.
[2020-07-17] MEDS ORDERED: LR 1000ml ONE (13:06)
[2020-07-17] MEDS ORDERED: D5 1/2NS 1000ml IV ONE (13:06)
--- NOTE | 2020-07-17 13:11 | NUR ---
NURSE NOTES: Patient discharged home as ordered. Stable. Patient was given thorough discharge instructions by surgeon. All questions and concerns addressed by surgeon prior to discharge. Teaching reinforced by RN. Patient assisted into private vehicle by RN without incident. All belongings given to patient. Skin is c/d/i. IV removed.
[2020-07-17 14:00] VITALS: BP 124/72
--- NOTE | 2020-07-17 14:00 | General Progress Note ---
Subjective Constitutional: Denies: no symptoms, chills, diaphoresis, fever, malaise, weakness, other HEENT: Denies: no symptoms, eye pain, blurred vision, tearing, double vision, ear pain, ear discharge, nose pain, nose congestion, throat pain, throat swelling, mouth pain, mouth swelling, other Cardiovascular: Denies: no symptoms, chest pain, edema, irregular heart rate, lightheadedness, palpitations, syncope, other Respiratory: Denies: no symptoms, cough, orthopnea, shortness of breath, SOB with excertion, SOB at rest, sputum, stridor, wheezing, other Genitourinary: Denies: no symptoms, burning, discharge, frequency, flank pain, hematuria, incontinence, pain, urgency, other Neurologic/Psychiatric: Denies: no symptoms, anxiety, depressed, emotional problems, headache, numbness, paresthesia, pre-existing deficit, seizure, tingling, tremors, weakness, other Endocrine: Denies: no symptoms, excessive sweating, flushing, intolerance to cold, intolerance to heat, increased hunger, increased thirst, increased urine, unexplained weight gain, unexplained weight loss, other Hematologic/Lymphatic: Denies: no symptoms, anemia, easy bleeding, easy bruising, other Allergies: Coded Allergies: No Known Allergies (Unverified , 07/15/20) Objective Last 24 Hour Vital Signs Date Time Temp Pulse Resp B/P (MAP) Pulse Ox O2 Delivery O2 Flow Rate FiO2 07/17/20 08:50 Room Air 07/17/20 08:00 99.1 103 17 110/66 (81) 96 07/17/20 04:26 99.4 07/17/20 04:00 99.4 85 17 103/61 (75) 97 07/16/20 23:38 98.1 90 16 117/76 (90) 98 07/16/20 20:31 Room Air 07/16/20 20:00 97.0 99 18 115/77 (90) 98 07/16/20 17:20 98.7 85 18 121/80 (94) 99 07/16/20 16:50 98.6 82 18 120/79 (93) 100 07/16/20 16:45 98.6 07/16/20 16:37 98.0 95 20 111/73 100 Nasal Cannula 3 07/16/20 16:35 86 20 118/72 100 Nasal Cannula 3 07/16/20 16:16 85 18 110/79 100 Simple Mask 6 07/16/20 16:06 76 19 101/65 100 Simple Mask 6 07/16/20 15:58 78 20 99 07/16/20 15:56 81 17 108/64 100 Simple Mask 6 07/16/20 15:51 83 17 104/65 100 Simple Mask 6 07/16/20 15:46 97.9 83 20 103/68 97 Simple Mask 6 Intake and Output 0 07/16/20 07/17/20 19:00 07:00 Intake Total 1400 ml 1800 ml Output Total 450 ml Balance 950 ml 1800 ml Intake Oral 1200 ml IV Total 1400 ml 600 ml Output Urine Total 300 ml Estimated Blood Loss 150 ml # Voids 2 4 Height (Feet): 5 Height (Inches): 3.00 Weight (Pounds): 150 General Appearance: no apparent distress EENT: PERRL/EOMI Neck: supple Cardiovascular: normal rate Respiratory/Chest: normal breath sounds Abdomen: soft Assessment/Plan Status: stable Assessment/Plan: S: I am ok O: post op. seems comfortable. tolerating PO diet, had BM A/P: 1- Adnexal mass, Torsion of ovary including in ddx Plan: ONce cleared by [facility] Director , october f/u as o/p Batsheva Rebolledo MD Jul 17, 2020 14:00
--- NOTE | 2020-07-17 14:00 | 48 Hour Post Anesthesia Eval ---
Post Anesthesia Evaluation Procedure: Laparoscopic removal of R ovarian cyst Date of Evaluation: Jul 17, 2020 Time of Evaluation: 13:59 Blood Pressure Systolic: 124 0: 72 Pulse Rate: 78 Respiratory Rate: 20 Temperature (Fahrenheit): 97.6 O2 Sat by Pulse Oximetry: 98 Airway: patent Nausea: No Vomiting: No Pain Intensity: 1 Hydration Status: adequate Cardiopulmonary Status: stable Mental Status/LOC: patient returned to baseline Follow-up Care/Observations: n/a Post-Anesthesia Complications: none Follow-up care needed: ready to discharge Mickey Verdugo MD Jul 17, 2020 14:00
--- NOTE | 2020-07-17 15:25 | NUR ---
INSURANCE CLINICALS/REVIEWS/DC INSTRUCTIONS FAXED TO [facility] FAX [phone] TELE [phone] DEPT CM- NOT ASSIGNED YET
--- NOTE | 2020-07-20 16:49 | Discharge Summary ---
Discharge Summary Discharge Summary _ Date of admission: 07/15/2020 Date of discharge: 07/17/[address] Rebolledo History of Present Illness and Brief Hospital Course Ms. West is a 24-year-old female with past medical history of ADHD currently taking Vyvanse who presented to the ED for evaluation of sudden onset right flank pain with 10 out of 10 in severity. She also reported to be on her period. CT of abdomen/ pelvis without contrast revealed multiple large heterogeneous fat-containing lesions in the pelvis, which were concerning for dermoids. She was taken to the OR for diagnostic laparoscopy, possible exploratory laparotomy, possible salpingo-oophorectomy, and possible cystectomy. She underw ent video laparoscopy, right salpingo-oophorectomy, and evacuation of extensive dermoid cyst contents. She was found to have right ovarian torsion. She tolerated the procedure well and was monitored for recovery. She began tolerating oral diet, and had a bowel movement. Patient was medically stable for discharge and was discharged home on 07/17/2020. Patient is to follow-up wit h with a transformer assembler as an outpatient. Consultants: None Discharge Condition Improved and stable Discharge Activity Advance as tolerated Discharge Diet Regular Final diagnoses Hx of right ovarian torsion Status post right salpingo-oophorectomy Status post evacuation of extensive dermoid cyst contents I have been assigned to dictate discharge summary for this account. I was not involved in the patient's management Kings Rowley Jul 20, 2020 16:49
== END 2020-07-17 13:07 | disposition home or self-care (01) | DRG 742 ==
LOC: EMR 15:04 → 3E 20:58 → EDBEDREQ 23:53
PROC: 0UT08ZZ Resection of Right Ovary, Via Natural or Artificial Opening Endoscopic (ICD-10-PCS; principal; 2020-07-15)
PROC: 0UT58ZZ Resection of Right Fallopian Tube, Via Natural or Artificial Opening Endoscopic (ICD-10-PCS; principal; 2020-07-15)
PROC: 0U904ZZ Drainage of Right Ovary, Percutaneous Endoscopic Approach (ICD-10-PCS; principal; 2020-07-15)
DX: D27.0 Benign neoplasm of right ovary (principal); N83.511 Torsion of right ovary and ovarian pedicle; F90.9 Attention-deficit hyperactivity disorder, unspecified type
CPT/HCPCS: 36415; 74176; 76830; 76856; 80053; 80307; 81003; 81025; 82550; 83690; 84702; 85007; 85025; 85610; 85730; 94003; 94150; 96361; 96374; 96375; 96376; 99285; G0480; J2250; J2405; J2710; J7030